=== PATIENT | female | born 1965 | race Asian ===

== ENCOUNTER 2024-01-15 16:24 | Emergency (ER) | payer MEDICAID ==
[~2024-01-15] VITALS: Ht 152.4 cm; Wt 51.3 kg
[2024-01-15 16:25] VITALS: BP_SYST 110; PULSE 74; RESP 19; TEMP 97.9; O2SAT 97
[2024-01-15] MEDS ORDERED: IBUP-1969 PO (17:57)
== END 2024-01-15 18:49 | disposition home or self-care (01) ==
LOC: SED 16:24
DX: S63.591A Other specified sprain of right wrist, initial encounter (principal); Z79.899 Other long term (current) drug therapy; X58.XXXA Exposure to other specified factors, initial encounter; Y93.89 Activity, other specified; Y92.89 Other specified places as the place of occurrence of the external cause; Y99.8 Other external cause status
CPT/HCPCS: 99284